=== PATIENT | male | born 1945 | race Asian ===

== ENCOUNTER 2017-07-27 13:37 | Inpatient (IN) | payer MEDICARE, OTHER ==
[2017-07-27] MEDS: IPRATROPIUM (NEB) 0.5 MG/2.5 ML AMP INH (14:04)
[2017-07-27] MEDS: ALBUTEROL 0.5% (NEB) 2.5 MG/0.5 ML AMP INH (14:08)
[2017-07-27 14:18] LABS: ADD MAN DIFF? NO
[2017-07-27 14:19] LABS: MODE NASAL CANNULA; MetHgb Venous 0.1 %; Sample Type Blood venous; Site VENOUS LINE; Venous COHb 0.4 %; Venous Fraction OxyHgb 73.8 %; Venous Oxygen Sat 74.2 mmHG (55.0-75.0); Venous Total Hemglobin 14.4 g/dl
[2017-07-27 14:20] LABS: BASOPHILS % 0.4 % (0.0-2.0); EOSINOPHILS # 0.1 10^3/ul (0.0-0.5); HEMATOCRIT 39.9 % (42.0-52.0); HEMOGLOBIN 13.3 g/dl (14.0-18.0); LYMPHOCYTES # 0.9 10^3/ul (0.8-2.9); LYMPHOCYTES % 8.1 % (15.0-51.0); MEAN CORPUSCULAR HEMOGLOBIN 29.3 pg (29.0-33.0); MEAN CORPUSCULAR HGB CONC 33.3 g/dl (32.0-37.0); MEAN CORPUSCULAR VOLUME 87.9 fl (82.0-101.0); MEAN PLATELET VOLUME 9.2 fl (7.4-10.4); MONOCYTES % 9.4 % (0.0-11.0); NEUTROPHIL # 8.8 10^3/ul (1.6-7.5); NEUTROPHILS % 80.3 % (39.0-77.0); PLATELET COUNT 361 10^3/UL (140-415); RED BLOOD COUNT 4.54 10^6/ul (4.70-6.10); RED CELL DISTRIBUTION WIDTH 13.9 % (11.5-14.5)
[2017-07-27 14:38] LABS: ANION GAP 13 (8-16); BLOOD UREA NITROGEN 16 mg/dl (7-20); CALCIUM 9.2 mg/dl (8.4-10.2); CARBON DIOXIDE 36 mmol/L (21-31); CHLORIDE 91 mmol/L (97-110); CREATININE 0.79 mg/dl (0.61-1.24); GLUCOSE 95 mg/dl (70-220); SODIUM 136 mmol/L (135-144)
[2017-07-27 14:50] LABS: B-TYPE NATRIURETIC PEPTIDE 562 PG/ML (0-125)
[2017-07-27 14:51] LABS: TROPONIN-I < 0.012 ng/ml (0.00-0.12)
[2017-07-27] MEDS: LEVOFLOXACIN 500 MG TAB PO (16:20)
[2017-07-27] MEDS: ALBUTEROL 0.083% (NEB) 2.5 MG/3 ML AMP NEB (16:51)
[2017-07-27] MEDS: METHYLPREDNISOLONE 125 MG INJ IV (17:55)
[2017-07-27] MEDS ORDERED: NACL 0.9% 3 ML SYG IV (18:30)
[2017-07-27] MEDS ORDERED: MAGNESIUM HYDROXIDE 30ML CUP PO (18:30)
[2017-07-27] MEDS ORDERED: DOCUSATE SODIUM 100 MG CAP PO (18:30)
[2017-07-27] MEDS ORDERED: ONDANSETRON 4 MG INJ IV (18:30)
[2017-07-27] MEDS ORDERED: ACETAMINOPHEN 325 MG TAB PO (18:30)
[2017-07-27] MEDS ORDERED: SOD CHLORIDE 0.9% 100 ML (19:57)
[2017-07-27] MEDS ORDERED: IOHEXOL 300MG/ML 150 ML BTL (19:58)
[2017-07-27] MEDS: LEVOFLOXACIN 500MG/D5W (PMX) 250 ML IVPB (20:23)
[2017-07-27] MEDS: ATORVASTATIN 10 MG TAB PO (22:02)
[2017-07-28] MEDS: METHYLPREDNISOLONE 125 MG INJ IV ×3 (00:12→11:29)
[2017-07-28] MEDS: SALMETEROL/FLUTICASONE 250/50 INHA INH ×3 (01:30→20:43)
[2017-07-28 06:39] LABS: ALANINE AMINOTRANSFERASE 42 IU/L (13-69); ALBUMIN/GLOBULIN RATIO 1.29; ALKALINE PHOSPHATASE 73 IU/L (42-121); ANION GAP 12 (8-16); ASPARTATE AMINO TRANSFERASE 31 IU/L (15-46); BILIRUBIN,INDIRECT 0.2 mg/dl (0-1.1); BILIRUBIN,TOTAL 0.2 mg/dl (0.2-1.3); BLOOD UREA NITROGEN 15 mg/dl (7-20); CALCIUM 9.3 mg/dl (8.4-10.2); CARBON DIOXIDE 35 mmol/L (21-31); CHLORIDE 94 mmol/L (97-110); CREATININE 0.79 mg/dl (0.61-1.24); GLUCOSE 138 mg/dl (70-220); MAGNESIUM 2.1 mg/dl (1.7-2.5); PHOSPHORUS 3.7 mg/dl (2.5-4.9); POTASSIUM 4.1 mmol/L (3.5-5.1); SODIUM 137 mmol/L (135-144); TOTAL PROTEIN 7.1 g/dl (6.1-8.1)
[2017-07-28] MEDS: ASPIRIN (EC) 81 MG TAB PO (08:49)
[2017-07-28] MEDS: DILTIAZEM (CD) 300 MG CAP PO (08:49)
[2017-07-28] MEDS: ENOXAPARIN 40 MG/0.4 ML SYG SC (08:50)
[2017-07-28 12:46] LABS: INR 1.01; PROTIME 13.4 Sec (11.9-14.9)
[2017-07-28] MEDS: FUROSEMIDE 20 MG INJ IV (13:20)
[2017-07-28] MEDS: GUAIFENESIN LA 600 MG TABSR PO ×2 (14:06→20:45)
[2017-07-28] MEDS: LEVOFLOXACIN 500MG/D5W (PMX) 250 ML IVPB (20:43)
[2017-07-28] MEDS: METHYLPREDNISOLONE 40 MG INJ IV (20:44)
[2017-07-28] MEDS: ATORVASTATIN 10 MG TAB PO (20:45)
[2017-07-29] MEDS: GUAIFENESIN/DM 5ML CUP PO (01:53)
[2017-07-29] MEDS: ALBUTEROL 0.083% (NEB) 2.5 MG/3 ML AMP NEB (03:11)
[2017-07-29] MEDS: ASPIRIN (EC) 81 MG TAB PO (08:32)
[2017-07-29] MEDS: ENOXAPARIN 40 MG/0.4 ML SYG SC (08:32)
[2017-07-29] MEDS: METHYLPREDNISOLONE 40 MG INJ IV ×2 (08:33→20:20)
[2017-07-29] MEDS: GUAIFENESIN LA 600 MG TABSR PO ×2 (08:34→20:20)
[2017-07-29] MEDS: SALMETEROL/FLUTICASONE 250/50 INHA INH ×2 (08:34→20:20)
[2017-07-29] MEDS: DILTIAZEM (CD) 300 MG CAP PO (08:34)
[2017-07-29] MEDS: FUROSEMIDE 20 MG INJ IV (08:38)
[2017-07-29] MEDS: LIDOCAINE 1% (MPF) 5 ML VIAL (15:35)
[2017-07-29 16:42] LABS: FLD PMN% 8.6 %; FLD RBC 2000 /uL; FLD WBC 783 /cmm
[2017-07-29 16:46] LABS: LACTATE DEHYDROGENASE 530 IU/L (313-618)
[2017-07-29 16:46] LABS: TOTAL PROTEIN 3.9 g/dl (6.1-8.1)
[2017-07-29 18:28] LABS: FLD MN% 91.4 %; PATH REVIEW? YES
[2017-07-29 18:28] LABS: FLD TYPE THORACENTHESIS
[2017-07-29 18:29] LABS: FLD CLARITY CLOUDY; FLD COLOR AMBER
[2017-07-29 18:33] LABS: FLUID LD 530 U/L; FLUID TOTAL PROTEIN 3.9 g/dl; FLUID TYPE THORACENTESIS FLUID
[2017-07-29 18:36] LABS: FLUID GLUCOSE 168 mg/dl; FLUID TYPE THORACENTESIS FLUID
[2017-07-29] MEDS: LEVOFLOXACIN 500MG/D5W (PMX) 250 ML IVPB (20:20)
[2017-07-29] MEDS: ATORVASTATIN 10 MG TAB PO (20:20)
[2017-07-30 06:43] LABS: ADD MAN DIFF? NO
[2017-07-30 06:49] LABS: WHITE BLOOD COUNT 19.4 10^3/ul (4.8-10.8)
[2017-07-30 06:49] LABS: ABNORMAL IP MESSAGE 1; BASOPHILS % 0.2 % (0.0-2.0); HEMATOCRIT 36.1 % (42.0-52.0); HEMOGLOBIN 12.4 g/dl (14.0-18.0); LYMPHOCYTES # 0.3 10^3/ul (0.8-2.9); LYMPHOCYTES % 1.6 % (15.0-51.0); MEAN CORPUSCULAR HEMOGLOBIN 29.5 pg (29.0-33.0); MEAN CORPUSCULAR HGB CONC 34.3 g/dl (32.0-37.0); MEAN CORPUSCULAR VOLUME 85.7 fl (82.0-101.0); MEAN PLATELET VOLUME 9.2 fl (7.4-10.4); MONOCYTE # 0.5 10^3/ul (0.3-0.9); MONOCYTES % 2.5 % (0.0-11.0); NEUTROPHIL # 18.4 10^3/ul (1.6-7.5); NEUTROPHILS % 94.7 % (39.0-77.0); PLATELET COUNT 326 10^3/UL (140-415); POSITIVE DIFF @See below; RED BLOOD COUNT 4.21 10^6/ul (4.70-6.10)
[2017-07-30 07:29] LABS: ALBUMIN 3.4 g/dl (3.3-4.9); ANION GAP 12 (8-16); BLOOD UREA NITROGEN 30 mg/dl (7-20); CALCIUM 8.6 mg/dl (8.4-10.2); CARBON DIOXIDE 38 mmol/L (21-31); CHLORIDE 90 mmol/L (97-110); CREATININE 0.84 mg/dl (0.61-1.24); GLUCOSE 130 mg/dl (70-220); MAGNESIUM 2.3 mg/dl (1.7-2.5); PHOSPHORUS 4.2 mg/dl (2.5-4.9); POTASSIUM 3.8 mmol/L (3.5-5.1); SODIUM 136 mmol/L (135-144)
[2017-07-30] MEDS: ENOXAPARIN 40 MG/0.4 ML SYG SC (08:55)
[2017-07-30] MEDS: METHYLPREDNISOLONE 40 MG INJ IV (08:56)
[2017-07-30] MEDS: SALMETEROL/FLUTICASONE 250/50 INHA INH (08:56)
[2017-07-30] MEDS: ASPIRIN (EC) 81 MG TAB PO (08:57)
[2017-07-30] MEDS: GUAIFENESIN LA 600 MG TABSR PO ×2 (08:58→20:44)
[2017-07-30] MEDS: FUROSEMIDE 20 MG INJ IV (08:58)
[2017-07-30] MEDS: DILTIAZEM (CD) 300 MG CAP PO (08:59)
[2017-07-30] MEDS ORDERED: ALBUTEROL/IPRATROPIUM (NEB) 3 ML AMP HHN (15:00)
[2017-07-30] MEDS: BUDESONIDE (NEB) 0.5MG/2ML AMP HHN (20:07)
[2017-07-30] MEDS: ALBUTEROL/IPRATROPIUM (NEB) 3 ML AMP HHN (20:07)
[2017-07-30] MEDS: LEVOFLOXACIN 500MG/D5W (PMX) 250 ML IVPB (20:43)
[2017-07-30] MEDS: ATORVASTATIN 10 MG TAB PO (20:44)
[2017-07-31] MEDS: BUDESONIDE (NEB) 0.5MG/2ML AMP HHN ×2 (07:57→19:31)
[2017-07-31] MEDS: ALBUTEROL/IPRATROPIUM (NEB) 3 ML AMP HHN ×3 (07:57→19:31)
[2017-07-31] MEDS: FUROSEMIDE 20 MG INJ IV (08:41)
[2017-07-31] MEDS: DILTIAZEM (CD) 300 MG CAP PO (08:41)
[2017-07-31] MEDS: GUAIFENESIN LA 600 MG TABSR PO ×2 (08:41→21:50)
[2017-07-31] MEDS: predniSONE 20 MG TAB PO (08:42)
[2017-07-31] MEDS: ASPIRIN (EC) 81 MG TAB PO (08:42)
[2017-07-31] MEDS: ENOXAPARIN 40 MG/0.4 ML SYG SC (08:43)
[2017-07-31] MEDS ORDERED: VANCOMYCIN IV PER PHARMACY XX (16:30)
[2017-07-31] MEDS: VANCOMYCIN 1 GM 250 ML IVPB (16:43)
[2017-07-31] MEDS: LEVOFLOXACIN 500MG/D5W (PMX) 250 ML IVPB (21:50)
[2017-07-31] MEDS: ATORVASTATIN 10 MG TAB PO (21:50)
[2017-08-01] MEDS: GUAIFENESIN/DM 5ML CUP PO ×2 (02:16→06:58)
[2017-08-01] MEDS: VANCOMYCIN 500MG/NS (PMX) 100 ML IVPB ×2 (05:18→16:04)
[2017-08-01] MEDS: ALBUTEROL/IPRATROPIUM (NEB) 3 ML AMP HHN ×2 (08:39→13:28)
[2017-08-01] MEDS: BUDESONIDE (NEB) 0.5MG/2ML AMP HHN (08:39)
[2017-08-01] MEDS: ASPIRIN (EC) 81 MG TAB PO (09:04)
[2017-08-01] MEDS: FUROSEMIDE 20 MG INJ IV (09:04)
[2017-08-01] MEDS: GUAIFENESIN LA 600 MG TABSR PO (09:04)
[2017-08-01] MEDS: DILTIAZEM (CD) 300 MG CAP PO (09:04)
[2017-08-01] MEDS: predniSONE 20 MG TAB PO (09:04)
[2017-08-01] MEDS: ENOXAPARIN 40 MG/0.4 ML SYG SC (09:08)
[2017-08-01 14:41] LABS: MAGNESIUM 2.2 mg/dl (1.7-2.5)
== END 2017-08-01 19:46 | disposition home or self-care (01) | DRG 190 ==
LOC: E/R 13:37 → PP2 18:18
PROC: 4A033R1 Measurement of Arterial Saturation, Peripheral, Percutaneous Approach (ICD-10-PCS; 2017-07-27)
PROC: 0W993ZX Drainage of Right Pleural Cavity, Percutaneous Approach, Diagnostic (ICD-10-PCS; principal; 2017-07-29)
DX: J44.1 Chronic obstructive pulmonary disease with (acute) exacerbation (principal); J96.22 Acute and chronic respiratory failure with hypercapnia; J96.21 Acute and chronic respiratory failure with hypoxia; R64 Cachexia; I27.20 Pulmonary hypertension, unspecified; E44.0 Moderate protein-calorie malnutrition; J90 Pleural effusion, not elsewhere classified; I07.1 Rheumatic tricuspid insufficiency; Z99.81 Dependence on supplemental oxygen; Z68.1 Body mass index [BMI] 19.9 or less, adult; K80.20 Calculus of gallbladder without cholecystitis without obstruction; I10 Essential (primary) hypertension; E78.5 Hyperlipidemia, unspecified; I25.10 Atherosclerotic heart disease of native coronary artery without angina pectoris; Z95.1 Presence of aortocoronary bypass graft; Z79.82 Long term (current) use of aspirin; Z87.891 Personal history of nicotine dependence
CPT/HCPCS: 32555; 36415; 71045; 71270; 76705; 80048; 80053; 80069; 82803; 82945; 83615; 83735; 83880; 84100; 84155; 84157; 84484; 85025; 85610; 87040; 87070; 87102; 87116; 88104; 88305; 88312; 89051; 93005; 94640; 94644; 94664; 96365; 96375; 97110; 97116; 97162; 97530; 99291-25; G0378; J1940